=== PATIENT | male | born 1970 | race African-American/Black ===

== ENCOUNTER 2017-10-29 01:06 | Emergency (ER) | payer SELFPAY ==
[~2017-10-29] VITALS: Ht 182.9 cm; Wt 82.0 kg
[2017-10-29 01:08] VITALS: BP 130/77
== END 2017-10-29 07:35 | disposition left against medical advice (07) ==
LOC: ER 01:06
DX: Z53.21 Procedure and treatment not carried out due to patient leaving prior to being seen by health care provider (principal)

== ENCOUNTER 2017-10-29 10:38 | Emergency (ER) | payer MEDICAID ==
[~2017-10-29] VITALS: Ht 182.9 cm; Wt 89.0 kg
[2017-10-29 13:49] VITALS: BP 138/69
== END 2017-10-29 13:51 | disposition home or self-care (01) ==
LOC: ER 13:19
DX: S00.83XA Contusion of other part of head, initial encounter (principal); S70.01XA Contusion of right hip, initial encounter; M47.896 Other spondylosis, lumbar region; F17.200 Nicotine dependence, unspecified, uncomplicated; V43.52XA Car driver injured in collision with other type car in traffic accident, initial encounter; Y93.89 Activity, other specified; Y92.488 Other paved roadways as the place of occurrence of the external cause
CPT/HCPCS: 70450; 71101; 72100; 73502; 99284

== ENCOUNTER 2018-09-03 17:03 | Inpatient (IN) | payer MEDICAID ==
[~2018-09-03] VITALS: Ht 188 cm; Wt 72.1 kg
[2018-09-03 17:35] LABS: EOSINOPHILS % 2.5 % (0.0-5.0); HEMATOCRIT. 43.2 % (42.0-52.0); HEMOGLOBIN. 14.5 g/dL (14.0-18.0); LYMPHOCYTES % 26.5 % (20.0-50.0); MEAN CORPUSCULAR HEMOGLOBIN 33.9 pg (28.0-32.0); MEAN CORPUSCULAR VOLUME 100.7 fL (80.0-94.0); MONOCYTES % 10.6 % (2.0-8.0); NEUTROPHILS % 59.4 % (40.0-76.0); PLATELET 213 x1000/uL (130-400); RED BLOOD CELL COUNT 4.29 mill/uL (4.7-6.1); RED CELL DISTRIBUTION WIDTH 13.7 % (11.6-14.6)
[2018-09-03 17:40] LABS: CHLORIDE 111 mEq/L (98-107)
[2018-09-03 17:41] LABS: PARTIAL THROMBOPLASTIN TIME 30.1 sec (23.4-31.0)
[2018-09-03 17:44] LABS: ETHANOL BLOOD < 10 mg/dL
[2018-09-03 17:48] LABS: LDL CHOLESTEROL 77 mg/dL (5-100)
[2018-09-03 17:49] LABS: CREATINE KINASE 423 IU/L (39-308)
[2018-09-03] MEDS ORDERED: ASPIRIN 325MG EC TABLET PO ONE (18:00)
[2018-09-03 18:38] LABS: CLARITY URINE CLEAR (CLEAR); COLOR URINE YELLOW (YELLOW); KETONES URINE NEGATIVE (NEGATIVE); LEUKOCYTE ESTERASE URINE TRACE (NEGATIVE); NITRITE URINE NEGATIVE (NEGATIVE); OCCULT BLOOD URINE NEGATIVE (NEGATIVE); PH URINE 6.5 (4.5-8.0); PROTEIN URINE NEGATIVE (NEGATIVE); SPECIFIC GRAVITY URINE 1.014 (1.005-1.030)
[2018-09-03 18:48] LABS: *AMPHETAMINES SCREEN URINE NEGATIVE (NEGATIVE); *BARBITURATES SCREEN URINE NEGATIVE (NEGATIVE)
[2018-09-03 18:50] LABS: *BENZODIAZEPINES SCREEN URINE NEGATIVE (NEGATIVE); *COCAINE SCREEN URINE PRESUMTIVE POSITIVE (NEGATIVE); CANNABINOID URINE SCREEN PRESUMTIVE POSITIVE (NEGATIVE); OPIATES URINE SCREEN NEGATIVE (NEGATIVE); PHENCYCLIDINE URINE SCREEN PRESUMTIVE POSITIVE (NEGATIVE)
[2018-09-03 18:51] LABS: METHADONE URINE SCREEN NEGATIVE (NEGATIVE)
[2018-09-03] MEDS ORDERED: ONDANSETRON HCL 4MG/2ML INJ IV PRN (20:15)
[2018-09-03] MEDS ORDERED: ACETAMINOPHEN 325MG TABLET PO PRN (20:15)
[2018-09-03] MEDS ORDERED: HYDROCODONE/ACETAMINOPHEN 5/325MG TABLET PO PRN (20:15)
[2018-09-03] MEDS ORDERED: MAGNESIUM/ALUMINUM HYDROXIDE/SIMETHICONE 30ML UDC PO PRN (20:15)
[2018-09-03] MEDS ORDERED: CLONIDINE 0.1MG TABLET PO PRN (20:15)
[2018-09-03 22:00] VITALS: BP 146/86
[2018-09-04] VITALS: BP 136/78
[2018-09-04 04:00] VITALS: BP 132/74
[2018-09-04 06:41] LABS: BASOPHILS % 0.7 % (0.0-2.0); EOSINOPHILS % 4.8 % (0.0-5.0); HEMATOCRIT. 43.6 % (42.0-52.0); HEMOGLOBIN. 14.6 g/dL (14.0-18.0); MEAN CORPUSCULAR VOLUME 101.9 fL (80.0-94.0); MEAN PLATELET VOLUME 8.5 fl (7.4-10.4); MONOCYTES % 13.1 % (2.0-8.0); NEUTROPHILS % 41.4 % (40.0-76.0); PLATELET 204 x1000/uL (130-400); RED BLOOD CELL COUNT 4.28 mill/uL (4.7-6.1); RED CELL DISTRIBUTION WIDTH 13.6 % (11.6-14.6)
[2018-09-04 06:53] LABS: CHLORIDE 110 mEq/L (98-107)
[2018-09-04 07:03] LABS: LDL CHOLESTEROL 78 mg/dL (5-100)
[2018-09-04 07:05] LABS: HDL CHOLESTEROL 75 mg/dL (40-59)
[2018-09-04 07:07] LABS: PHOSPHORUS 3.4 mg/dL (2.5-4.9)
[2018-09-04 08:00] VITALS: BP 133/79
[2018-09-04] MEDS: AMLODIPINE 5MG TABLET PO SCH (13:30)
[2018-09-04 16:00] VITALS: BP 128/82
[2018-09-04 20:00] VITALS: BP 136/79
[2018-09-05] VITALS: BP 135/82
[2018-09-05 04:00] VITALS: BP 126/77
[2018-09-05 06:57] LABS: CHLORIDE 111 mEq/L (98-107)
[2018-09-05 07:02] LABS: BASOPHILS % 0.8 % (0.0-2.0); EOSINOPHILS % 5.6 % (0.0-5.0); HEMOGLOBIN. 14.4 g/dL (14.0-18.0); LYMPHOCYTES % 38.5 % (20.0-50.0); MEAN CORPUSCULAR HEMOGLOBIN 34.4 pg (28.0-32.0); MEAN CORPUSCULAR VOLUME 100.5 fL (80.0-94.0); MEAN PLATELET VOLUME 8.4 fl (7.4-10.4); MONOCYTES % 13.2 % (2.0-8.0); NEUTROPHILS % 41.9 % (40.0-76.0); PLATELET 204 x1000/uL (130-400); RED BLOOD CELL COUNT 4.18 mill/uL (4.7-6.1); RED CELL DISTRIBUTION WIDTH 13.6 % (11.6-14.6)
[2018-09-05 08:13] VITALS: BP 127/69
[2018-09-05] MEDS: AMLODIPINE 5MG TABLET PO SCH (08:48)
[2018-09-05 12:00] VITALS: BP 118/74
[2018-09-05 14:51] VITALS: BP 118/74
== END 2018-09-05 16:25 | disposition home or self-care (01) | DRG 816 ==
LOC: ER 17:03 → 7WST 18:01 → EDBEDREQSVC 18:11 → EDBEDREQ 18:11 → EDBEDREQTM 18:11 → ENRESERV 20:37
PROVIDERS: ADMIT Family Medicine Adult Medicine; ATTEND Family Medicine Adult Medicine
DX: T40.5X1A Poisoning by cocaine, accidental (unintentional), initial encounter (principal); G92 Toxic encephalopathy; G45.9 Transient cerebral ischemic attack, unspecified; M62.82 Rhabdomyolysis; F19.188 Other psychoactive substance abuse with other psychoactive substance-induced disorder; F17.210 Nicotine dependence, cigarettes, uncomplicated; T40.7X1A Poisoning by cannabis (derivatives), accidental (unintentional), initial encounter; I10 Essential (primary) hypertension; Z91.19 Patient's noncompliance with other medical treatment and regimen; Y92.89 Other specified places as the place of occurrence of the external cause; T40.991A Poisoning by other psychodysleptics [hallucinogens], accidental (unintentional), initial encounter
CPT/HCPCS: 36415; 70551; 71045; 80048; 80061; 80305; 80320; 82550; 82962; 83721; 83735; 83880; 84100; 84443; 84484; 93005; 93306; 93880; 93970; 99291; G0480

== ENCOUNTER 2019-01-03 21:11 | Emergency (ER) | payer MEDICAID ==
[~2019-01-03] VITALS: Ht 182.9 cm; Wt 82.0 kg
[2019-01-03 22:05] VITALS: BP 134/88
== END 2019-01-04 02:33 | disposition left against medical advice (07) ==
LOC: ER 21:11
DX: Z53.21 Procedure and treatment not carried out due to patient leaving prior to being seen by health care provider (principal)

== ENCOUNTER 2019-01-04 11:53 | Emergency (ER) | payer MEDICAID ==
[~2019-01-04] VITALS: Ht 182.9 cm; Wt 79.0 kg
[2019-01-04 12:01] VITALS: BP 152/92
[2019-01-04] MEDS ORDERED: ACETAMINOPHEN 500MG TABLET PO ONE (13:15)
== END 2019-01-04 14:38 | disposition home or self-care (01) ==
LOC: ER 13:04
DX: H61.21 Impacted cerumen, right ear (principal); I10 Essential (primary) hypertension
CPT/HCPCS: 99283

== ENCOUNTER 2022-12-21 19:45 | Emergency (ER) | payer MEDICAID ==
[~2022-12-21] VITALS: Ht 177.8 cm; Wt 82.0 kg
[2022-12-21 19:47] VITALS: O2SAT 100
[2022-12-21] MEDS ORDERED: SODIUM CHLORIDE 0.9% 1,000 ML IV ONE ×2 (20:15)
[2022-12-21 20:28] LABS: EOSINOPHILS % 2.1 % (0.0-5.0); HEMATOCRIT. 39.1 % (42.0-52.0); HEMOGLOBIN. 13.4 g/dL (14.0-18.0); MEAN CORPUSCULAR HEMOGLOBIN 34.3 pg (28.0-32.0); MEAN CORPUSCULAR HGB CONC 34.3 g/dL (31.0-37.0); MEAN PLATELET VOLUME 8.5 fl (7.4-10.4); MONOCYTES % 11.3 % (2.0-8.0); NEUTROPHILS % 45.6 % (40.0-76.0); PLATELET 190 x1000/uL (130-400); RED BLOOD CELL COUNT 3.91 mill/uL (4.7-6.1); RED CELL DISTRIBUTION WIDTH 13.3 % (11.6-14.6); WHITE BLOOD COUNT 5.3 x1000/uL (4.5-11.0)
[2022-12-21 20:42] LABS: CLARITY URINE CLEAR (CLEAR); COLOR URINE YELLOW (YELLOW); GLUCOSE URINE NEGATIVE (NEGATIVE); KETONES URINE NEGATIVE (NEGATIVE); LEUKOCYTE ESTERASE URINE NEGATIVE (NEGATIVE); NITRITE URINE NEGATIVE (NEGATIVE); OCCULT BLOOD URINE NEGATIVE (NEGATIVE); PH URINE 5.5 (4.5-8.0); PROTEIN URINE 1+ (NEGATIVE); SPECIFIC GRAVITY URINE 1.019 (1.005-1.030)
[2022-12-21 20:44] LABS: BACTERIA URINE NONE SEEN; RBC URINE 0-2 /hpf (0-2); SQUAMOUS EPITHELIAL CELL URINE NONE SEEN /lpf (RARE/1+); WBC URINE 0-2 /hpf (0-2); YEAST URINE NONE SEEN
[2022-12-21 21:03] LABS: CHLORIDE 110 mEq/L (98-107); INDEX HEMOLYSI 1 (1-3); INDEX ICTERIC 1 (1-4); INDEX LIPEMIC 1 (1-3); POTASSIUM 3.4 mEq/L (3.5-5.1); SODIUM 139 mEq/L (136-145)
[2022-12-21 21:05] LABS: CALCIUM 8.8 mg/dL (8.5-10.1)
[2022-12-21 21:06] LABS: ALBUMIN 3.6 g/dL (3.4-5.0); CARBON DIOXIDE 26 mEq/L (21-32); GLUCOSE 104 mg/dL (70-105); UREA NITROGEN BLOOD 14 mg/dL (7-21)
[2022-12-21 21:12] LABS: ALANINE AMINOTRANSFERASE 16 IU/L (13-61); ASPARTATE AMINOTRANSFERASE 10 IU/L (15-37); BILIRUBIN TOTAL 0.4 mg/dL (0.1-1.0); CREATININE 1.3 mg/dL (0.6-1.3); ETHANOL BLOOD 12 mg/dL (-10); PROTEIN TOTAL 6.8 g/dL (6.0-8.3)
[2022-12-21 22:27] VITALS: BP 99/65; PULSE 65; RESP 17
== END 2022-12-21 22:28 | disposition home or self-care (01) ==
LOC: ER 19:45
DX: E86.0 Dehydration (principal); I10 Essential (primary) hypertension; F12.90 Cannabis use, unspecified, uncomplicated
CPT/HCPCS: 80053; 81003; 80320; 83605; 85025; 87040; 36415; 84145; 93005; 96360; 99285; J7030; Z7610; G0480